=== PATIENT | female | born 1970 | race Caucasian/White ===

== ENCOUNTER 2016-08-06 11:53 | Day surgery (SDC) | payer OTHER ==
[2016-08-06] VITALS (7 sets, daily range): BP systolic 116–144; BP diastolic 66–99; PULSE 60–74; RESP 14–19; O2SAT 98–99
[~2016-08-06] VITALS: Ht 170.2 cm; Wt 83.6 kg
[~2016-08-06 11:53] MED LIST: CeFAZolin Inj 2 GM in IV Premix 1 EACH IV ONE; MULT-1018 PO
[2016-08-06] MEDS ORDERED: Dexamethasone 4 mg/mL Inj ONE (11:54)
[2016-08-06] MEDS ORDERED: Ondansetron 2 mg/mL 2 mL Inj ONE (11:54)
[2016-08-06] MEDS ORDERED: Lidocaine PF 1% 30 mL Inj ONE (11:54)
[2016-08-06] MEDS ORDERED: Propofol 10,000 mCg/mL 20 mL Inj ONE (11:54)
[2016-08-06] MEDS ORDERED: Lactated Ringer's 1,000 ML IV ONE (12:17)
[2016-08-06] MEDS ORDERED: CeFAZolin Inj 2 gm / 50mL D5W IV ONE (12:54)
[2016-08-06] MEDS ORDERED: Lidocaine 1%/Epi 1:100,000 30 mL MDV INFILTRATE ONE (13:53)
[2016-08-06] MEDS ORDERED: Bupivacaine 0.5%/EPI 50 mL Inj INFILTRATE ONE (13:54)
--- NOTE | 2016-08-06 14:00 | PCM.HPANE ---
Patient Data Date of Service: Aug 06, 2016 Surgeon Admitting Provider: Attending Provider:Saleem Damico DPM Primary Care Physician:Sukumar Mcbride MD Other Provider:Neeta Bledsoe Anesthesia Reason for Visit Left Achilles Rupture Ht/WT & BMI Height (Feet): 5 Height (Inches): 7.5 Weight (Kilograms): 82.1 Body Mass Index 28.00 Allergies Coded Allergies: codeine (Verified Adverse Reaction, Severe, GI DISTRESS, 08/05/16) Uncoded Allergies: "NARCOTICS" (Adverse Reaction, Severe, GI DISTRESS ("PAIN MEDS"), 08/05/16) Past Anesthesia History Anesthesia History: Denies:: Anesthesia Reactions, Malignant Hyperthermia Diabetes History Hx Diabetes?: No MRSA MRSA: No Medications Hypertension Medication: No Reported Medications Multivitamin (Multi Vitamin Daily)1 Each Tablet1 Each PO DAILY 30 Days Ref 0 08/05/16 Discontinued Reported Medications No Historical Medication Ea 08/26/12 History History of ENT Problems?: Yes Other HEENT Pertinent History: HX OF GINGIVITIS,DENTAL ABCESS S/P DENTAL SURGERY Hx of Heart Problems?: Yes Cardiovascular History: Positive for:: Hypertension (WAS SWITCHING OFF LASIX & METOPROLOL;HAS NOT STARTED ANYTHING NEW) Denies:: Congestive Heart Failure Heart Murmur Hx of Respiratory Problem?: No Respiratory History: Denies:: Tuberculosis Use of C-PAP Machine Hx Neurologic Problems?: Yes Hx of GI Problems?: No Hx of Problems?: No Female Hx: Denies:: Currently (S/P IUD REMOVAL, ESC OF "NODULES" HX OVARIAN CYSTS) Skin History: Denies:: History Skin Disorders? Pressure Ulcers Hx Musculoskeletal Problems?: Yes Musculoskeletal History: Positive for:: Musculoskeletal Trauma (LT ACHILLES RUPTURE=CURRENT PROBLEM) Denies:: Back Injury (C/OF CERVICAL PAIN) Hx of Psycho/Social Problems?: No Hx Surgeries?: Yes (S/P LEEP PROCEDURE,IUD REMOVAL,EXC NODULES) Hx Any Other Health Problems?: Yes Other History: Denies:: Cancer (CERVICAL HYPERPLASIA) Endocrine Disease Hospitalization Thyroid Disease Hx Diabetes: No Hx Alcohol Use: Yes (OCCAS)Hx Substance Use: Yes (MARIJUANA)Have You Smoked inLast 12 mo: No Stop/Bang S-Snoring: Do You Snore Loudly: No T-Tired: feel tired, fatigued: Yes O-Obsered: Observed not breath: No P-Blood Pressure: treated: Yes B- Body Mass Index > 35 kg/m2: No A- Age over 50: No N- Neck Large Circumference: No G- Gender Male: No TREVOR Total Score: 2 Risk Assessment Category Category 1A: Patient has history of documented sleep apnea, and HAS NOT received any narcotic, sedative or anesthesia administration during this stay. Category 1B: Patient has history of documented sleep apnea, and HAS received any narcotic , sedative or anesthesia administration during this stay Category 2: Patient has SUSPECTED Obstructive Sleep Apnea, and HAS received any narcotic , sedative or anesthesia administration during this stay. Category 3: Patient has SUSPECTED Obstructive Sleep Apnea and HAS NOT received narcotic, sedative or anesthesia administration during this stay. Category 4: Outpatient in Procedural Areas with known sleep apnea or who screen positive for High Risk via the STOP/BANG questionnaire. Exam Exam Vital Signs Vital Signs (Last) Date Time Temp Pulse Resp B/P Pulse Ox O2 Delivery O2 Flow Rate FiO2 08/06/16 12:18 36.5 74 16 144/99 98 Room Air General Appearance: Alert, Oriented X3 HEENT/AIRWAY: MP 1 Lungs: Clear to Auscultation Heart: Exam Unremarkable Plan Impression Patient chart reviewed, patient interviewed and anesthestic plan with risks, benefits, and alternatives discussed, and informed consent obtained. ASA Physical Status: ASA2 Mod Systemic Disease Anesthetic Plan: SAB Bene/Risks/Altern/Consents: Yes HP Complete Prior to Induction: Yes Jaden Crespo MD Aug 06, 2016 08:11
[2016-08-06] MEDS ORDERED: Lactated Ringer's 1,000 ML IV SCH (15:15)
[2016-08-06] MEDS ORDERED: fentaNYL-PF 50 mCg/mL 2 mL Inj IVPUSH PRN (15:15)
[2016-08-06] MEDS ORDERED: EPHEDrine Sulfate 50 mg/mL Inj IM PRN (15:15)
[2016-08-06] MEDS ORDERED: Ondansetron 2 mg/mL 2 mL Inj IVPUSH PRN (15:15)
[2016-08-06] MEDS ORDERED: MetoCLOpramide 5 mg/mL 2 mL Inj IVPUSH PRN (15:15)
[2016-08-06] MEDS ORDERED: Labetalol 5 mg/mL 4 mL Inj IV PRN (15:15)
[2016-08-06] MEDS ORDERED: HYDROmorphone 1 mg/mL Inj IVPUSH PRN (15:15)
[2016-08-06] MEDS ORDERED: EPHEDrine Sulfate 50 mg/mL Inj IVPUSH PRN (15:15)
[2016-08-06] MEDS ORDERED: Lactated Ringer's 500 ML IV PRN (15:15)
[2016-08-06] MEDS ORDERED: Phenylephrine 10,000 mCg/mL Inj IVPUSH PRN (15:15)
[2016-08-06] MEDS ORDERED: hydrALAZINE 20 mg/mL Inj IVPUSH PRN (15:15)
[2016-08-06] MEDS ORDERED: Atropine 0.4 mg/mL Inj IVPUSH PRN (15:15)
--- NOTE | 2016-08-06 15:17 | PCM.ANEP2 ---
Post Anesthesia Evaluation ASA/CMS Post Anesthesia Date of Service: Aug 06, 2016 VS in Patient's Normal Range?: Yes Resp Stable; Airway Patent?: Yes CV Function & Hydration Stable: Yes Mental Status Recovered?: Yes Pain control Satisfactory?: Yes N/V Control Satisfactory?: Yes Jaden Crespo MD Aug 06, 2016 15:17
--- NOTE | 2016-08-06 15:17 | PCM.ANEP1 ---
Post Anesthesia Phase 1 PACU Phase 1 Assessment Date of Service: Aug 06, 2016 Vital Signs Vital Signs Date Time Temp Pulse Resp B/P Pulse Ox O2 Delivery O2 Flow Rate FiO2 08/06/16 12:18 36.5 74 16 144/99 98 Room Air Anesthetic Administered: SAB Level of Alertness: Awake, talking VILLARREAL's with Equal Strength: No (post sab, recovering) Pain: No Nausea or Vomiting: No Oxygen Delivery: Room Air Jaden Crespo MD Aug 06, 2016 15:17
[2016-08-06] MEDS ORDERED: hydrOXYzine Pamoate 25 mg Capsule ONE (16:13)
--- NOTE | 2016-08-07 05:45 | OP ---
[address] [address] OPERATIVE REPORT PATIENT: COLLEEN LAZAR : 1970 MR#: [id number] ADMIT: 08/06/2016 JOB ID: [id number] DATE OF SURGERY: 08/06/2016 SURGEON: Saleem Damico DPM. PRODUCTION CONTROL SCHEDULER: Giuseppe Hi MD. PREOPERATIVE DIAGNOSIS(ES): Acute traumatic rupture of left Achilles tendon. POSTOPERATIVE DIAGNOSIS(ES): Acute traumatic rupture of left Achilles tendon. PLANNED PROCEDURE: Open repair of left Achilles tendon with autograft. ANESTHESIA: Spinal with local block and sedation. HEMOSTASIS: None. ESTIMATED BLOOD LOSS: Less than 5 cc. COMPLICATIONS: None. PROCEDURE AND FINDINGS: The patient was brought to the operating room and placed on the table in a sitting position initially to perform the spinal block. After the spinal block was performed and confirmed, the patient was placed into a supine position. The left lower extremity was prepped and draped in a normal sterile surgical manner. An incisional block was performed using 2% lidocaine with epinephrine. The left lower extremity was placed in an abducted frogleg position for access to the Achilles tendon. Attention was directed to the posterior calf, where a readily palpable deficit was noted. I made the incision medial to the longitudinal axis of the Achilles and dissected this down to the paratenon using sharp and blunt dissection, carefully cauterizing and ligating any bleeders that were encountered. I then incised the paratenon on its lateral margin and rotated this as a flap medially. We retracted the wound for ready access to the tendon. The tendon was found to be completely ruptured all the way across with ecchymosis in areas of entrapped hematoma. We initially irrigated this to clarity for observation and then were able to identify that the proximal lateral aspect of the tendon appeared to be repairable, as did the distal medial aspect. Tear was found to be following the normal torsion of the tendon as it descends to the insertion. The insertion itself was found to be unremarkable. The areas of dystrophic, torn and badly injured tendon were excised. This left two readily identifiable segments of the proximal tendon, one of which we released and shifted downward as autograft to help bridge her deficit. The foot was placed in a neutral position. We began closure of the tendon from proximal to distal, first on the lateral aspect where the greatest deficit was noted. This was accomplished with 0 Vicryl on a cervical needle for running Krackow type repair with deeply buried knots. I then performed the same on the medial aspect of the tendon incorporating the plantaris tendon along its course adjacent to the Achilles. The area of autograft was incorporated across the most longitudinal section of the deficit for further augmentation. At this point of the procedure, the tendon was found to be functional, stable and anatomically correct. We then closed the paratenon with 3-0 Vicryl with running, rolling technique. Several retention sutures were placed deep to the skin with 3-0 Vicryl as well. Running subcutaneous 4-0 Vicryl was also placed with deeply buried knots in proximal and distal ends. Durable bupivacaine block was placed in the posterior triangle, and the incision was stabilized further with Steri-Strips over tincture of benzoin. Dressings were placed in the form of saline-moistened Kwaku silk and gauze 4 x 4's, followed by Kerlix, tubular stocking at [place] and Quan bandages from MTPJ to tibial tuberosity. These were placed generally loosely so as not to over constrict. The patient had immediate CFT to all digits throughout the procedure, as no tourniquet was applied. POSTOPERATIVE PLAN: The patient may bear weight on this using her boot. She is encouraged to wear the boot, however, at all times night and day. She will follow with me in my regular office next week. I did provide prescriptions for [place] and Vistaril for pain control and to help with cramping. The patient is also encouraged to ice and elevate. She is given my after hours numbers for contact should she have any trouble. My thanks to our Surgical team, Anesthesia and to Dr. Hi for their assistance in caring for this very nice lady. FILEMON
== END 2016-08-06 23:59 | disposition home or self-care (01) ==
LOC: SAS 11:53
PROVIDERS: ATTEND Podiatrist
DX: M66.862 Spontaneous rupture of other tendons, left lower leg (principal); I10 Essential (primary) hypertension; Z87.891 Personal history of nicotine dependence
CPT/HCPCS: 27652; J0690; J1100; J2250; J2405; J7120; Q0177